=== PATIENT | male | born 1970 | race Caucasian/White ===

== ENCOUNTER 2022-04-22 12:40 | Day surgery (SDC) | payer MEDICARE, SELFPAY ==
[2022-04-22] VITALS (8 sets, daily range): BP systolic 112–137; BP diastolic 78–92; PULSE 89–107; RESP 14–20; TEMP 36.3–36.8; O2SAT 91–100; BMI 22.8
--- NOTE | 2022-04-22 12:58 | EDS_ITS ---
HPI History of Present Illness Chief Complaint: Abd Pain Informant: patient and parent Narrative Narrative: 52-year-old male with a history of muscular dystrophy presents the emergency room out of concern for esophageal food impaction. He states that last night around 1800 hrs. she was eating Saulsberry steak. States that he has not been able to swallow anything since. He notes this morning he vomited up saliva and some small pieces of steak. He has not had impactions in the past. He reportedly had gone to the emergency department at [place]. He states that they gave him the option of being transferred but they declined and were going to wait until this morning and come here. [facility] Medical History (Updated 04/22/22 @ 13:[address] Sal Guzman DO) Muscular dystrophy Allergy/AdvReac Type Severity Reaction Status Date / Time No Known Allergies Allergy Verified 04/22/22 12:41 Social History (Updated 04/22/22 @ 12:[address] Sal Guzman DO) current gender identity: male Smoking Status: Never smoker Tobacco: How many years used: 0 ROS ROS ED Constitutional Constitutional ED: Denies chills, fever(s) or weight loss Eyes Eyes: Denies change in vision or diplopia ENT ENT ED: Denies ear pain, rhinorrhea or sore throat Cardiovascular Cardiovascular: Denies chest pain, orthopnea, palpitations or racing heartbeat Respiratory/Chest Respiratory/Chest: Denies cough, dyspnea or orthopnea Gastrointestinal Gastrointestinal: Reports vomiting; Denies abdominal pain, diarrhea or nausea Genitourinary Genitourinary ED: Denies dysuria, hematuria or urinary frequency Musculoskeletal Musculoskeletal: Denies arthralgias or myalgias Integumentary Denies abscess or rash Neurologic Neurologic: Denies headache(s) or weakness Psychiatric Psychiatric: Denies anxiety, depression, suicidal ideation or suicidal thoughts Endocrine Endocrinology: Denies polydipsia, polyphagia or polyuria Allergic/Immunologic Allergic/Immunologic ED: Denies mouth swelling, tongue swelling or urticaria EXAM Physical Exam Const Vital Signs: 04/22/22 12:41 Temperature 98.2 F Temperature Source Temporal Pulse Rate 93 Respiratory Rate 14 Blood Pressure 127/91 H Blood Pressure Mean 103 Pulse Ox 97 Oxygen Delivery Method Room Air Positive well nourished and well developed General Appearance ED: well developed HEENT Reports normocephalic, head/scalp atraumatic, TM's clear and moist mucous membranes HEENT Narrative: Patient is having to spit his secretions. Negative for trauma Tympanic Membrane ED: Yes TM's clear Eyes PERRL and EOMs intact bilaterally Neck no lymphadenopathy, supple and no JVD Resp normal respiratory effort and clear to auscultation bilaterally Cardio regular rate, regular rhythm and no murmurs GI normal to inspection, nondistended, normoactive bowel sounds and non-tender Palpation: soft Back/Spine no CVA tenderness and normal ROM Extremity normal to inspection General Extremety ED: Negative for edema General Extremity: Negative for edema Neuro oriented x3 and CN's II-XII intact bilaterally Sensorium / Orientation: alert Motor Exam: strength 5/5 throughout Psych mental status grossly normal Mood & Affect: Negative for depressed or tearful Skin no rashes or lesions noted and no wounds MDM MDM Lab Data Lab results narrative: Discussed with Dr. Burnett from gastroenterology. Patient will be taken to endoscopy for EGD. Discharge Plan Triage Chief Complaint: Abd Pain ED Provider: Sal Guzman Dx/Rx/DC Orders Clinical Impression: Esophageal obstruction due to food impaction Primary Care Provider: Venancio Smith Disposition Disposition: Acute Care Hospital [facility]
[2022-04-22] MEDS: Lactated Ringers 1,000 ML 15 ML IV (14:20)
--- NOTE | 2022-04-22 14:46 | HP.PCM_ITS ---
History and Physical Date of Admission: 04/22/22 52-year-old male with a history of muscular dystrophy presents the emergency room out of concern for esophageal food impaction. He states that last night around 1800 hrs. she was eating Saulsberry steak. States that he has not been able to swallow anything since. He notes this morning he vomited up saliva and some small pieces of steak. He has not had impactions in the past. He reportedly had gone to the emergency department at [place]. He states that they gave him the option of being transferred but they declined and were going to wait until this morning and come here [facility] ED Constitutional Constitutional ED: Denies chills, fever(s) or weight loss Eyes Eyes: Denies change in vision or diplopia ENT ENT ED: Denies ear pain, rhinorrhea or sore throat Cardiovascular Cardiovascular: Denies chest pain, orthopnea, palpitations or racing heartbeat Respiratory/Chest Respiratory/Chest: Denies cough, dyspnea or orthopnea Gastrointestinal Gastrointestinal: Reports vomiting; Denies abdominal pain, diarrhea or nausea Genitourinary Genitourinary ED: Denies dysuria, hematuria or urinary frequency Musculoskeletal Musculoskeletal: Denies arthralgias or myalgias Integumentary Denies abscess or rash Neurologic Neurologic: Denies headache(s) or weakness Psychiatric Psychiatric: Denies anxiety, depression, suicidal ideation or suicidal thoughts Endocrine Endocrinology: Denies polydipsia, polyphagia or polyuria Allergic/Immunologic Allergic/Immunologic ED: Denies mouth swelling, tongue swelling or urticaria EXAM Physical Exam Const Vital Signs: 04/22/22 12:41 Temperature 98.2 F Temperature Source Temporal Pulse Rate 93 Respiratory Rate 14 Blood Pressure 127/91 H Blood Pressure Mean 103 Pulse Ox 97 Oxygen Delivery Method Room Air Positive well nourished and well developed General Appearance ED: well developed HEENT Reports normocephalic, head/scalp atraumatic, TM's clear and moist mucous membranes HEENT Narrative: Patient is having to spit his secretions. Negative for trauma Tympanic Membrane ED: Yes TM's clear Eyes PERRL and EOMs intact bilaterally Neck no lymphadenopathy, supple and no JVD Resp normal respiratory effort and clear to auscultation bilaterally Cardio regular rate, regular rhythm and no murmurs GI normal to inspection, nondistended, normoactive bowel sounds and non-tender Palpation: soft Back/Spine no CVA tenderness and normal ROM Extremity normal to inspection General Extremety ED: Negative for edema General Extremity: Negative for edema Neuro oriented x3 and CN's II-XII intact bilaterally Sensorium / Orientation: alert Motor Exam: strength 5/5 throughout Psych mental status grossly normal Mood & Affect: Negative for depressed or tearful Skin no rashes or lesions noted and no wounds Assessment and plan 52-year-old gentleman comes in with food bolus. He elected to undergo EGD. He was explained alternatives, risk, benefits including not withstanding bleeding, infection, sepsis, perforation, need for emergent . Have an ASA of 3.
--- NOTE | 2022-04-22 15:22 | OP.EGD_ITS ---
Patient Name: Davide Harrington Procedure Date: 04/22/2022 2:43 PM Date of : 1970 Age: 52 Procedure: Upper GI endoscopy Indications: Dysphagia Providers: Carlyle Burnett DO Medicines: Monitored Anesthesia Care Patient Profile: This is a 52 year old male. Refer to note in patient chart for documentation of history and physical. Patient has symptoms of acute dysphagia. The symptoms first began ,. Complications: No immediate complications. Procedure: Pre-Anesthesia Assessment: - Prior to the procedure, a History and Physical was performed, and patient medications and allergies were reviewed. The patient is competent. The risks and benefits of the procedure and the sedation options and risks were discussed with the patient. All questions were answered and informed consent was obtained. Patient identification and proposed procedure were verified by the physician in the pre-procedure area. Mental Status Examination: alert and oriented. Airway Examination: normal oropharyngeal airway and neck mobility. Respiratory Examination: clear to auscultation. CV Examination: normal. Prophylactic Antibiotics: The patient does not require prophylactic antibiotics. Prior Anticoagulants: The patient has taken no previous anticoagulant or antiplatelet agents. After reviewing the risks and benefits, the patient was deemed in satisfactory condition to undergo the procedure. The anesthesia plan was to use moderate sedation / analgesia (conscious sedation). Immediately prior to administration of medications, the patient was re-assessed for adequacy to receive sedatives. The heart rate, respiratory rate, oxygen saturations, blood pressure, adequacy of pulmonary ventilation, and response to care were monitored throughout the procedure. The physical status of the patient was re-assessed after the procedure. After obtaining informed consent, the endoscope was passed under direct vision. Throughout the procedure, the patient's blood pressure, pulse, and oxygen saturations were monitored continuously. The Endoscope was introduced through the mouth, and advanced to the second part of duodenum. The upper GI endoscopy was accomplished without difficulty. The patient tolerated the procedure well. Scope In: 2:51:18 PM Scope Out: 3:01:05 PM Total Procedure Duration Time 0 hours 9 minutes 47 seconds Findings: Food was found in the entire esophagus. Removal of food was accomplished. Verification of patient identification for the specimen was done. Estimated blood loss was minimal. A moderate Schatzki ring was found in the lower third of the esophagus. A guidewire was placed and the scope was withdrawn. Dilation was performed with a Savary dilator with no resistance at 33 Fr. The dilation site was examined and showed mild improvement in luminal narrowing. Estimated blood loss: none. The entire examined stomach was normal. The duodenal bulb was normal. Impression: - Food in the esophagus. Removal was successful. - Moderate Schatzki ring. Dilated. - Normal stomach. - Normal duodenal bulb. Recommendation: - Discharge patient to home. - Resume previous diet. - Continue present medications. - Use Protonix (pantoprazole) 40 mg PO BID for 4 weeks. Procedure Code(s): --- Professional --- 77746, Esophagogastroduodenoscopy, flexible, transoral; with removal of foreign body(s) 07523, Esophagogastroduodenoscopy, flexible, transoral; with insertion of guide wire followed by passage of dilator(s) through esophagus over guide wire CPT copyright 2017 [employer]. All rights reserved. The codes documented in this report are preliminary and upon tax technician review may be revised to meet current compliance requirements. Carlyle Burnett DO 04/22/2022 3:21:49 PM This report has been signed electronically. Number of Addenda: 1 Note Initiated On: 04/22/2022 2:43 PM Addendum Number: 1 Addendum Date: 08/29/2022 6:09:58 AM MAC was used as sedation for this procedure. Carlyle Burnett DO 08/29/2022 6:10:04 AM This report has been signed electronically.
--- NOTE | 2022-04-22 15:22 | OP.CCLET_ITS ---
08/29/2022 Venancio Smith Do Re : Upper GI endoscopy procedure for Davide Harrington Dear Dr. Smith This procedure was performed on Friday, April 22, 2022. My impressions and recommendations are as follows: Impressions : - Food in the esophagus. Removal was successful. - Moderate Schatzki ring. Dilated. - Normal stomach. - Normal duodenal bulb. Recommendations : - Discharge patient to home. - Resume previous diet. - Continue present medications. - Use Protonix (pantoprazole) 40 mg PO BID for 4 weeks. My findings are described in the full procedure note, which is enclosed. If I can be of further assistance, please feel free to contact me at . Sincerely, Carlyle Burnett, 04/22/2022 3:21:49 PM This report has been signed electronically.
== END 2022-04-22 16:42 | disposition home or self-care (01) ==
LOC: ED 13:36 → EN 14:01 → ACINP 14:02
PROVIDERS: Emergency Provider Emergency Medicine; PCP Student in an Organized Health Care Education/Training Program; Referring Provider Internal Medicine Gastroenterology; Visit Provider Internal Medicine Gastroenterology
PROC: 0DJ08ZZ Inspection of Upper Intestinal Tract, Via Natural or Artificial Opening Endoscopic (ICD-10-PCS; CPT 43235; principal; 2022-04-22 17:10)
DX: K22.2 Esophageal obstruction (principal); G71.00 Muscular dystrophy, unspecified; T18.128A Food in esophagus causing other injury, initial encounter; X58.XXXA Exposure to other specified factors, initial encounter
CPT/HCPCS: 43248; 43247; 99281; J7120; A4216; J2405